=== PATIENT | female | born 1985 | race Two or more races ===

== ENCOUNTER 2021-02-04 11:55 | Emergency (ER) | payer MEDICAID ==
[~2021-02-04] VITALS: Ht 162.6 cm; Wt 81.6 kg
[2021-02-04 12:04] VITALS: BP 120/86
[2021-02-04] MEDS ORDERED: ACET-8386 PO (14:37)
[2021-02-04 14:53] VITALS: BP 120/86
== END 2021-02-04 14:54 | disposition home or self-care (01) ==
LOC: MED 11:55
DX: M25.562 Pain in left knee (principal); X58.XXXA Exposure to other specified factors, initial encounter; Y93.89 Activity, other specified; Y92.89 Other specified places as the place of occurrence of the external cause; Y99.8 Other external cause status
CPT/HCPCS: 73562; 99283